=== PATIENT | male | born 1955 | race Native Hawaiian/Other Pacific Islander ===

== ENCOUNTER 2022-01-04 08:50 | Outpatient (CLI) | payer OTHER, MEDICARE ==
[2022-01-04 09:22] LABS: PLATELET COUNT 141 K/uL (142-355)
[2022-01-04 09:34] LABS: POTASSIUM 4.2 mmol/L (3.6-5.2)
== END 2022-01-04 20:50 | disposition home or self-care (01) ==
LOC: LABW 08:50
PROVIDERS: ATTEND Internal Medicine
DX: N18.4 Chronic kidney disease, stage 4 (severe) (principal)
CPT/HCPCS: 36415; 80053; 81002; 82043; 82330; 82552; 82570; 83735; 83970; 84100; 84156; 84550; 85027

== ENCOUNTER 2022-05-10 08:27 | Outpatient (CLI) | payer OTHER, MEDICARE ==
[2022-05-10 08:55] LABS: PLATELET COUNT 170 K/uL (142-355)
[2022-05-10 09:57] LABS: POTASSIUM 4.7 mmol/L (3.6-5.2)
== END 2022-05-10 18:57 | disposition home or self-care (01) ==
LOC: LABW 08:27
PROVIDERS: ATTEND Internal Medicine
DX: E11.22 Type 2 diabetes mellitus with diabetic chronic kidney disease (principal); N18.4 Chronic kidney disease, stage 4 (severe)
CPT/HCPCS: 36415; 80053; 81002; 82043; 82330; 82550; 82570; 83036; 83735; 83970; 84100; 84156; 84439; 84443; 84550; 85027